=== PATIENT | female | born 1965 ===

== ENCOUNTER 2018-06-14 16:03 | Emergency (ER) | payer SELFPAY ==
[2018-06-14 16:20] VITALS: BMI 41.0
[2018-06-14 16:24] VITALS: RESP 18; TEMP 98.4
[2018-06-14] MEDS ORDERED: Sodium Chloride 0.9% 1,000 ML IV STA (16:31)
[2018-06-14 17:35] LABS: BASO # 0.02 K/mm3 (0.0-2.0); BASO % 0.3 % (0.0-3.0); EOS # 0.1 (0.0-0.7); EOS % 1.5 % (1.5-5.0); GRAN # 4.9 (1.4-6.5); GRAN % 72.9 % (50.0-68.0); HEMOGLOBIN 12.7 g/dL (12.0-16.0); LYMPH # 1.5 (1.2-3.4); MEAN CELL VOLUME 88.7 fl (80.0-105.0); MEAN CORPUSCULAR HEMOGLOBIN 29.9 pg (25.0-35.0); MEAN CORPUSCULAR HGB CONC 33.7 g/dl (31.0-37.0); MEAN PLATELET VOLUME 9.3 fl (7.0-11.0); MONO # 0.2 (0.1-0.6); MONO % 3.3 % (1.0-6.0); RBC 4.25 10^6/uL (3.5-6.1); WHITE BLOOD COUNT 6.7 10^3/ul (4.5-11.0)
[2018-06-14 17:36] LABS: URINE BILIRUBIN NEGATIVE (NEGATIVE); URINE BLOOD SMALL (NEGATIVE); URINE GLUCOSE (UA) NEGATIVE (NEGATIVE); URINE LEUKOCYTE ESTERASE TRACE Leu/uL (NEGATIVE); URINE PROTEIN NEGATIVE mg/dL (<30 mg/dL)
[2018-06-14 17:37] LABS: URINE APPEARANCE CLEAR (CLEAR); URINE COLOR YELLOW (YELLOW)
[2018-06-14 17:43] LABS: URINE RBC 0 - 2 /hpf (0-2); URINE WBC 0 - 2 /hpf (0-6)
[2018-06-14 17:52] LABS: ALB/GLOB RATIO 0.9 (1.1-1.8); ALBUMIN 3.7 g/dL (3.0-4.8); ALT/SGPT 167 U/L (7-56); AMYLASE 102 U/L (35-125); AST/SGOT 360 U/L (14-36); BLOOD UREA NITROGEN 14 mg/dL (7-21); CALCIUM 8.8 mg/dL (8.4-10.5); GFR NON-AFRICAN AMERICAN > 60; LIPASE 222 U/L (23-300)
[2018-06-14] MEDS ORDERED: Iohexol 350 MG/100 ML VIAL ONE (17:56)
--- NOTE | 2018-06-14 18:26 | ED PDOC ---
Arrival/HPI <Curtis Ashraf - Last Filed: 06/14/18 20:15> - General Historian: Patient, Family <Jasmina Nolan - Last Filed: 06/14/18 20:27> - General Chief Complaint: Abdominal Pain Time Seen by Provider: 06/14/18 16:28 - History of Present Illness Narrative History of Present Illness (Text): 06/14/18 53 yo female w/PMHx of gallstones comes in for evaluation of epigastric pain gradually developed today at 1PM. Pt reports, " had spicy food before pain started". Pt sts, had BM with some relieved in epigastric pain. Otherwise, pt denies fever, chills, recent illness, CP, SOB, dyspnea, diaphoresis, palpitation , V/D, melena, hematoschezia, back pain, UTI sx. Ambulate to Ed for evaluation, not in any apparent distress. (Jasmina Nolan) Past Medical History - Provider Review Nursing Documentation Reviewed: Yes - Travel History Have you recently traveled outside [place] w/in the past 3 mons?: No - Infectious Disease Hx of Infectious Diseases: None - Tetanus Immunization Tetanus Immunization: Unknown - Psychiatric Hx Substance Use: No - Surgical History Hx Section: Yes Other/Comment: R Thumb surgery - Anesthesia Hx Anesthesia: Yes Hx Anesthesia Reactions: No <Jasmina Nolan - Last Filed: 06/14/18 20:27> Family/Social History - Physician Review Nursing Documentation Reviewed: Yes Family/Social History: No Known Family HX Smoking Status: Never Smoked Hx Alcohol Use: No Hx Substance Use: No <Jasmina Nolan - Last Filed: 06/14/18 20:27> Allergies/Home Meds <Curtis Ashraf - Last Filed: 06/14/18 20:15> <Jasmina Nolan - Last Filed: 06/14/18 20:27> Allergies/Adverse Reactions: Allergies No Known Allergies Allergy (Verified 10/29/16 20:12) Review of Systems - Review of Systems Constitutional: Normal Eyes: Normal ENT: Normal Respiratory: Normal. absent: SOB, Cough, Sputum Cardiovascular: Normal. absent: Chest Pain, Palpitations, Edema Gastrointestinal: Nausea. absent: Stool Changes, Diarrhea, Vomiting, Appetite Changes, Hematemesis Genitourinary Female: Normal. absent: Dysuria, Frequency Musculoskeletal: Normal Skin: Normal Neurological: Normal Endocrine: Normal Hemo/Lymphatic: Normal Psychiatric: Normal <Jasmina Nolan - Last Filed: 06/14/18 20:27> Physical Exam Vital Signs Reviewed: Yes Temperature: Afebrile Blood Pressure: Normal Pulse: Regular Respiratory Rate: Normal Appearance: Positive for: Well-Appearing, Non-Toxic, Comfortable Pain Distress: None Mental Status: Positive for: Alert and Oriented X 3 - Systems Exam Conjunctiva: Present: Normal Mouth: Present: Moist Mucous Membranes Pharnyx: No: ERYTHEMA Neck: Present: Trachea Midline. No: JVD Respiratory/Chest: Present: Clear to Auscultation, Good Air Exchange. No: Respiratory Distress, Accessory Muscle Use Cardiovascular: Present: Regular Rate and Rhythm, Normal S1, S2. No: Murmurs Abdomen: Present: Tenderness (mild epigastric/RUQ). No: Distention, Peritoneal Signs, Rebound, Guarding Back: No: CVA Tenderness Upper Extremity: Present: Normal Inspection Lower Extremity: No: Edema Neurological: Present: GCS=15, CN II-XII Intact, Speech Normal Skin: Present: Warm, Dry, Normal Color. No: Rashes Psychiatric: Present: Alert, Oriented x 3, Normal Insight, Normal Concentration <Jasmina Nolan - Last Filed: 06/14/18 20:27> Vital Signs Temp Pulse Resp BP Pulse Ox 06/14/18 18:00 98.4 F 67 18 125/54 L 99 06/14/18 16:24 98.4 F 77 18 110/75 96 Medical Decision Making <Curtis Ashraf - Last Filed: 06/14/18 20:15> - Lab Interpretations Interpretation: Abnormal lab values (LFT high compare to previous results) - EKG Interpretation Interpreted by ED Physician: Yes <Jasmina Nolan - Last Filed: 06/14/18 20:27> ED Course and Treatment: 06/14/18 19:20 Pt was OBS in ED for 3 hours and appears asymptomatic now. Pt reports, " feels much better now". Afebrile, hemodynamicaly stable. Non-toxic. ENT: no acute findings Lungs: CTA B/L, BS equal B/L Abd: benign, (-) guarding, (-) rebound, (-) localized tenderness now. back: (-) CVA tenderness. Blood owrk review, mild elevate LFT noted compare to previous visits. Imagings review (+) multiple gallstones, no evidence of obstruction, duct dilation or cholycystitis. results review and discussed with pt and family, OBS vs outpt f/u offered to patient. Since pt is asymptomatic now, patient choose to go home now, admits, has scheduled follow up with PMD in 2 days. Pt advised on course f ds. ref. to f/u with PMD, Surgery for further eval and tx. return to Ed at any time of any worsening ro new changes.' (Jasmina Nolan) - Lab Interpretations Lab Results: 06/14/18 17:22 06/14/18 17:22 Lab Results 06/14/18 17:22: Sodium 138, Potassium 4.0, Chloride 105, Carbon Dioxide 27, Anion Gap 10, BUN 14, Creatinine 0.6 L, Est GFR ( Amer) > 60, Est GFR ( Non-Af Amer) > 60, Random Glucose 126 H, Calcium 8.8, Total Bilirubin 1.1, AST 360 H, ALT 167 H, Alkaline Phosphatase 153 H, Total Protein 8.0, Albumin 3.7, Globulin 4.2, Albumin/Globulin Ratio 0.9 L, Amylase 102, Lipase 222 06/14/18 17:22: Urine Color Yellow, Urine Appearance Clear, Urine pH 6.0, Ur Specific [place] 1.025, Urine Protein Negative, Urine Glucose (UA) Negative, Urine Ketones Negative, Urine Blood Small H, Urine Nitrate Negative, Urine Bilirubin Negative, Urine Urobilinogen 1.0 H, Ur Leukocyte Esterase Trace H, Urine RBC 0 - 2, Urine WBC 0 - 2, Ur Epithelial Cells None, Urine Bacteria None 06/14/18 17:22: WBC 6.7 D, RBC 4.25, Hgb 12.7, Hct 37.7, MCV 88.7, MCH 29.9, MCHC 33.7, RDW 14.0, Plt Count 232, MPV 9.3, Gran % 72.9 H, Lymph % (Auto) 22.0 , [place] % (Auto) 3.3, Eos % (Auto) 1.5, Baso % (Auto) 0.3, Gran # 4.90, Lymph # ( Auto) 1.5, [place] # (Auto) 0.2, Eos # (Auto) 0.1, Baso # (Auto) 0.02 - RAD Interpretation Narrative RAD Interpretations (Text): 06/14/18 20:18 EXAM: US Abdomen Limited, Right Upper Quadrant CLINICAL HISTORY: 53 years old, female; Pain; Abdominal pain; Other: Ruq; Additional info: Ruq pain TECHNIQUE: Real-time ultrasound of the right upper quadrant with image documentation. COMPARISON: US - GALLBLADDER PANCREAS 10/29/2016 9:31 PM FINDINGS: Liver: Echogenic fatty replaced liver measuring 17 cm. No intrahepatic duct dilatation. No hepatic masses. Gallbladder: Small gallbladder stones. No gallbladder wall thickening. No pericholecystic edema. Common bile duct: 0.3 cm, normal Pancreas: Visualized pancreas appear normal. Pancreatic tail obscured by bowel gas. Right kidney: 12.7 x 5.5 x 6.0 cm. Cortical medullary junction differentiation maintained. No cortical thinning. No hydronephrosis. No shadowing stones. IMPRESSION: Numerous gallbladder stones largest approximately 7 mm. No gallbladder wall thickening. (Jasmina Nolan) Radiology Orders: 06/14/18 17:34 ABD & PELVIS IV CONTRAST ONLY [CT] Stat 06/14/18 18:27 GALLBLADDER & HEPATIC [US] Stat IMPRESSION: Gallbladder sludge/ dependent gallstones. Hypoattenuation of the liver compatible with hepatic steatosis. (Jasmina Nolan) - EKG Interpretation EKG Interpretation (Text): 06/14/18 17:37 SR@70/min, NAD, incomplete RBBB, no acute ST-T changes (Jasmina Nolan) - Medication Orders Current Medication Orders: Discontinued Medications Sodium Chloride (Sodium Chloride 0.9%) 1,000 mls @ 999 mls/hr IV .Q1H1M STA Stop: 06/14/18 17:31 Last Admin: 06/14/18 17:18 Dose: 999 mls/hr eMAR Start Stop Document 06/14/18 17:18 OCS (Rec: 06/14/18 17:18 [email or web address] Intravenous Solution Start Date 06/14/18 Start Time 17:18 End Date 06/14/18 End time 18:19 Total Infusion Time 61 Ketorolac Tromethamine (Toradol) 30 mg IVP STAT STA Stop: 06/14/18 16:31 Last Admin: 06/14/18 17:17 Dose: 30 mg MAR Pain Assessment Document 06/14/18 17:17 OCS (Rec: 06/14/18 17:18 [email or web address] Pain Reassessment Is this a pain reassessment? No Sleep Is patient sleeping during reassessment? No Presence of Pain Presence of Pain Yes Pain Scale Used Pain Scale Used Numeric Location Upper or Lower Upper Pain Location Body Site Abdomen Description Description Intermittent Intensity of Pain at present 9 Pain Behavior Facial Grimacing Aggravating Factors ADL's IVP Administration Document 06/14/18 17:17 OCS (Rec: 06/14/18 17:18 [email or web address] Charges for Administration # of IVP Administrations 1 Ondansetron HCl (Zofran Inj) 4 mg IVP STAT STA Stop: 06/14/18 16:31 Last Admin: 06/14/18 17:17 Dose: 4 mg IVP Administration Document 06/14/18 17:17 OCS (Rec: 06/14/18 17:17 [email or web address] Charges for Administration # of IVP Administrations 1 - PA / DIRECTOR OF SUSTAINABILITY / Resident Statement / has reviewed & agrees with the documentation as recorded. <Curtis Ashraf - Last Filed: 06/14/18 20:15> Disposition/Present on Arrival <Curtis Ashraf - Last Filed: 06/14/18 20:15> - Present on Arrival Any Indicators Present on Arrival: No History of DVT/PE: No History of Uncontrolled Diabetes: No Urinary Catheter: No History of Decub. Ulcer: No History Surgical Site Infection Following: None - Disposition Have Diagnosis and Disposition been Completed?: Yes Disposition Time: 19:26 Patient Plan: Discharge <Jasmina Nolan - Last Filed: 06/14/18 20:27> - Disposition Diagnosis: Cholelithiasis, Elevated LFTs Disposition: HOME/ ROUTINE Condition: STABLE Discharge Instructions (ExitCare): Gallstones Print Language: RWANDAN Additional Instructions: Diet restriction, avoid spicy, fatty food take pain medication as need Follow up with PMD in 1-2 days for re-evaluation. return to ED if any worsening or new changes. Prescriptions: Ondansetron ODT [Zofran ODT] 1 odt PO BID PRN #6 odt PRN Reason: Nausea/Vomiting Pantoprazole Sodium [Protonix] 40 mg PO DAILY #20 tablet. traMADol [Ultram] 50 mg PO BID #7 tab Referrals: Robbin Tomas MD [Family Provider] - Follow up with primary Forms: [employer] (Nepalese)
--- NOTE | 2018-06-14 18:42 | CT ---
Date of service: 06/14/2018 PROCEDURE: CT Abdomen and Pelvis with contrast HISTORY: LLQ pain COMPARISON: Right upper quadrant ultrasound performed 10/29/16 TECHNIQUE: Contrast dose: 100 mL Omnipaque 350 Radiation dose: Total exam DLP = 1208.52 mGy-cm. This CT exam was performed using one or more of the following dose reduction techniques: Automated exposure control, adjustment of the mA and/or kV according to patient size, and/or use of iterative reconstruction technique. FINDINGS: LOWER THORAX: No visible consolidation, pleural effusion, or pneumothorax. LIVER: Hypoattenuation of the liver compatible with hepatic steatosis. GALLBLADDER AND BILE DUCTS: Gallbladder sludge/small dependent gallstones. PANCREAS: Unremarkable. SPLEEN: Unremarkable. ADRENALS: Unremarkable. KIDNEYS AND URETERS: The kidneys enhance symmetrically. No hydronephrosis or obstructing calculus identified. VASCULATURE: No aortic aneurysm. BOWEL: Stomach is nondistended. Lack of oral contrast limits evaluation for bowel pathology. Bowel loops appear within normal limits of caliber without evidence of obstruction. APPENDIX: No secondary signs of acute appendicitis. PERITONEUM: No significant free fluid. No definite free air. LYMPH NODES: No bulky adenopathy identified. BLADDER: Unremarkable. REPRODUCTIVE: The uterus is present. BONES: No acute osseous abnormality is detected. OTHER FINDINGS: Small fat containing umbilical hernia. IMPRESSION: Gallbladder sludge/ dependent gallstones. Hypoattenuation of the liver compatible with hepatic steatosis.
[2018-06-14 20:38] VITALS: BP 120/71; PULSE 63; O2SAT 100
--- NOTE | 2018-06-15 09:41 | CARD ---
APPROVED REPORT Date of service: 06/14/2018 EKG Measurement Heart [id number] <Conclusion> Normal sinus rhythm Incomplete right bundle branch block Borderline ECG
--- NOTE | 2018-06-15 16:43 | US ---
Date of service: 06/14/2018 HISTORY: RUQ pain COMPARISON: None. TECHNIQUE: Sonographic evaluation of the right upper quadrant of the abdomen. FINDINGS: LIVER: Measures 17 x 12.4 x 20 cm in length. Increased echogenicity of the liver parenchyma. No mass. No intrahepatic bile duct dilatation. GALLBLADDER: Unremarkable. No gallstones. COMMON BILE DUCT: Measures 3.3 mm. No stones. No dilatation. PANCREAS: Unremarkable as visualized. No mass. No ductal dilatation. RIGHT KIDNEY: Measures 12.74 x 5.46 x 5.98 cm in length. Normal echogenicity. No calculus, mass, or hydronephrosis. AORTA: No aneurysmal dilatation. IVC: Unremarkable. OTHER FINDINGS: None . IMPRESSION: Fatty infiltration of the liver
== END 2018-06-14 20:46 | disposition home or self-care (01) ==
LOC: ED 16:03
DX: K80.20 Calculus of gallbladder without cholecystitis without obstruction (principal); R79.89 Other specified abnormal findings of blood chemistry
CPT/HCPCS: 74177; 76705; 80053; 81001; 82150; 83690; 85025; 87086; 93005; 96361; 96374; 96375; 99285; J1885; J2405; J7030; Q9967